=== PATIENT | male | born 1975 | race Caucasian/White ===

== ENCOUNTER 2016-09-02 04:48 | Emergency (ER) | payer OTHER ==
[2016-09-02] MEDS ORDERED: NALBUPHINE HCL 10 MG/ML AMP ONE ×2 (05:35→06:03)
[2016-09-02] MEDS ORDERED: LACTATED RINGERS 1,000 ML ONE (05:35)
[2016-09-02] MEDS ORDERED: ONDANSETRON 4 MG/2ML 2 ML VIAL ONE (05:35)
[2016-09-02] MEDS ORDERED: ONDANSETRON 4 MG ODT TAB ONE (06:03)
[2016-09-02 06:42] LABS: ABSOLUTE NEUTROPHIL COUNT 6.7 K/mm3 (1.8-7.7); BASO % 0.5 % (0.2-1.0); EOS # 0.1 (0.0-0.5); EOS % 0.8 % (0.9-2.9); HEMATOCRIT 47.5 % (32.0-52.0); HEMOGLOBIN 15.2 gm/l (14.0-18.0); IMM NEUT% 0.4 % (0-1); LYMPH # 1.5 (1.0-4.8); LYMPH % 17.6 % (15-45); MEAN CELL VOLUME 84.8 fl (80.0-94.0); MEAN CORPUSCULAR HEMOGLOBIN 27.1 pg (27.0-31.0); MEAN PLATELET VOLUME 11.3 fl (7.4-10.4); MONO # 0.2 (0.0-0.8); MONO % 2.8 % (4-12); NEUT % 77.9 % (43-75); PLATELET COUNT 224 K/mm3 (130-400); RED CELL DISTRIBUTION WIDTH 12.5 % (11.5-14.5)
[2016-09-02 06:46] LABS: SPECIFIC GRAVITY 1.025 (1.001-1.030); URINE BILIRUBIN NEGATIVE (NEGATIVE); URINE BLOOD NEGATIVE (NEGATIVE); URINE GLUCOSE (UA) NEGATIVE (NEGATIVE); URINE LEUKOCYTE ESTERASE NEGATIVE (NEGATIVE); URINE NITRITE NEGATIVE (NEGATIVE); URINE PROTEIN NEGATIVE (NEGATIVE); URINE UROBILINOGEN NORMAL (0-1 mg/dl)
[2016-09-02 06:48] LABS: ALB/GLOB RATIO 1.3 (>1.0); ALBUMIN 4.5 gm/dL (3.5-5.7); CALCIUM 9.8 mg/dL (8.6-10.3)
[2016-09-02 06:50] LABS: URINE APPEARANCE CLEAR; URINE COLOR AMBER
--- NOTE | 2016-09-02 07:32 | US ---
EXAMINATION: Limited gallbladder ultrasound examination was performed. CLINICAL INDICATION: Right upper quadrant pain. COMPARISON: 03/08/2010 FINDINGS: Gallbladder: 20.4 cm in length. Cholelithiasis: Cholelithiasis is noted. There is a 1 cm mobile stone. Gallbladder wall thickness: 2 millimeters. Pericholecystic fluid: Absent Common bile duct: Prominent and measures 7 millimeters. Sonographic Belcher's sign: Elicited. IMPRESSION: Markedly distended gallbladder with cholelithiasis. There is a prominent common bile duct as well. Findings are worrisome for biliary obstruction/early cholecystitis. No gallbladder wall thickening is currently appreciated. Sonographic Belcher's sign is elicited. The findings were uploaded to the electronic medical record for review at approximately 7:33 AM 09/02/2016
== END 2016-09-02 07:28 | disposition home or self-care (01) ==
LOC: ED 04:48
DX: R10.9 Unspecified abdominal pain (principal); F17.210 Nicotine dependence, cigarettes, uncomplicated; Z53.20 Procedure and treatment not carried out because of patient's decision for unspecified reasons
CPT/HCPCS: 83690; 85025; 80053; 81003; 36415; 76705; 99283 ×2; 96372; 93005; J2300 ×2; J7120; A9270